=== PATIENT | female | born 1975 | race Caucasian/White ===

== ENCOUNTER 2018-07-02 02:30 | Emergency (ER) | payer BC, OTHER ==
[2018-07-02 02:31] VITALS: BMI 24.5
[2018-07-02 02:43] VITALS: BP 123/67; PULSE 84; RESP 20; TEMP 97.9; O2SAT 99
--- NOTE | 2018-07-02 03:35 | C.PDOC ---
History Of Present Illness 42 y/o F c no PMHx p/w L shoulder pain x 2 days. Patient went to beach yesterday , participated in swimming and upon returning home, had pain in the L shoulder and anterior L chest, worse with movement or palpation. Denies dyspnea, fever, cough, vomiting, trauma. Time Seen by Provider: 07/02/18 02:48 Chief Complaint (Nursing): Upper Extremity Problem/Injury Past Medical History Vital Signs: Last Vital Signs Temp 97.9 F 07/02/18 02:39 Pulse 84 07/02/18 02:39 Resp 20 07/02/18 02:39 BP 123/67 07/02/18 02:39 Pulse Ox 99 07/02/18 02:39 Surgical History: Family History: States: Unknown Family Hx - Social History Hx Alcohol Use: Yes Hx Substance Use: No - Immunization History Hx Tetanus Toxoid Vaccination: No Hx Influenza Vaccination: No Hx Pneumococcal Vaccination: No Review Of Systems Except As Marked, All Systems Reviewed And Found Negative. Constitutional: Negative for: Fever Respiratory: Negative for: Shortness of Breath Physical Exam - Physical Exam Additional Physical Exam Comments: Gen: NAD Head: NC/AT Eyes: PERRL ENT: MMM Neck: Supple Chest: Reproducible tenderness CV: Regular rate Lungs: CTA b/l Abd: Soft, NT Back: No CVA tenderness Extremities: Able to range L shoulder Skin: No rash Neuro: Alert, no focal deficit ED Course And Treatment O2 Sat by Pulse Oximetry: 99 Medical Decision Making Medical Decision Making: Toradol IM for pain. CXR and shoulder XR negative for fracture or dislocation. Discharged home, f/u PMD, return to ED for worsening pain, fever, dyspnea, vomiting, or any other problem. Disposition - Disposition Referrals: Pk Irvin MD [Staff Provider] - Disposition: HOME/ ROUTINE Disposition Time: 03:34 Condition: STABLE Prescriptions: Famotidine [Pepcid] 1 tab PO BID #14 tab Ibuprofen [Motrin] 600 mg PO Q6 #25 tab Instructions: Shoulder Pain (DC) - Clinical Impression Clinical Impression: Shoulder pain
--- NOTE | 2018-07-02 09:29 | RAD ---
Date of service: 07/02/2018 HISTORY: upper anterior chest wall pain COMPARISON: No prior. TECHNIQUE: Chest PA and lateral FINDINGS: LUNGS: No active pulmonary disease. PLEURA: No significant pleural effusion identified. No pneumothorax apparent. CARDIOVASCULAR: Normal. OSSEOUS STRUCTURES: No significant abnormalities. VISUALIZED UPPER ABDOMEN: Normal. OTHER FINDINGS: None. IMPRESSION: No active disease.
--- NOTE | 2018-07-02 09:29 | RAD ---
Date of service: 07/02/2018 PROCEDURE: Radiographs of the Left Shoulder HISTORY: shoulder pain COMPARISON: No prior. FINDINGS: BONES: Normal. No fracture. JOINTS: Normal. Glenohumeral and acromioclavicular joints preserved. No osteoarthritis. SOFT TISSUES: Normal. OTHER FINDINGS: None. IMPRESSION: Normal radiographs of the left shoulder.
== END 2018-07-02 03:48 | disposition home or self-care (01) ==
LOC: C.ER 02:30
DX: M25.512 Pain in left shoulder (principal)
CPT/HCPCS: 71046; 73030; 96372; 99283; J1885